=== PATIENT | female | born 1990 | race Asian ===

== ENCOUNTER 2020-11-07 17:48 | Emergency (ER) | payer OTHER ==
[2020-11-07 18:03] VITALS: BP 105/69
[2020-11-07] MEDS ORDERED: diphenhydrAMINE INJ 50 MG/ML VIAL IVP STA (18:34)
--- NOTE | 2020-11-07 18:41 | ED Physician Documentation ---
History of Present Illness - Stated complaint Stated Complaint: RASH & ACHES/POST COVID INJECTION - Chief complaint Chief Complaint: Allergic Rx - History obtained from History obtained from: Patient - History of Present Illness Timing: Today Pain level max: 0 Pain level now: 0 - Additonal information Additional information: 30-year-old female states that she received her second Covid vaccination yesterday. Today developed body aches. She states that she developed a light rash across her abdomen today as well. Has not taken anything for this. Does not itch. Nothing makes it better or worse. No difficulty speaking, swallowing, breathing. The rash is nowhere else. Review of Systems Constitutional: denies: Fever, Chills GI: denies: Vomiting, Diarrhea : denies: Now EGA Musculoskeletal: denies: Neck pain, Back pain Neurologic: denies: Headache PD PAST MEDICAL HISTORY - Past Medical History Past Medical History: No - Present Medications Home Medications: Ambulatory Orders Medication Instructions Recorded Confirmed No Known Home Medications 11/07/20 11/07/20 - Allergies Allergies/Adverse Reactions: Allergies Allergy/AdvReac Type Severity Reaction Status Date / Time No Known Drug Allergies Allergy Verified 11/07/20 17:59 - Social History Does the pt smoke?: No Smoking Status: Never smoker PD ED PE NORMAL - Vitals Vital signs reviewed: Yes - General General: Alert and oriented X 3, No acute distress, Well developed/nourished - HEENT HEENT: Moist mucous membranes - Neck Neck: Supple, no meningeal sign - Cardiac Cardiac: RRR, Strong equal pulses - Respiratory Respiratory: No respiratory distress, Clear bilaterally, Other (No stridor. No wheezing. Normal phonation.) - Abdomen Abdomen: Soft, Non tender, Non distended - Derm Derm: Warm and dry, Other (Very faint rash across the upper abdomen. Blanches easily.) - Neuro Neuro: Alert and oriented X 3 - Psych Psych: Normal mood, Normal affect Results - Vitals Vitals: Vital Signs - 24 hr 11/07/20 17:59 Temperature 36.5 C Heart Rate 95 Respiratory 16 Rate Blood Pressure 105/69 O2 Saturation 97 Oxygen O2 Source Room air PD MEDICAL DECISION MAKING - ED course Complexity details: considered differential, d/w patient ED course: Patient with what appears to be a very mild urticaria across the upper abdomen. Given Benadryl here. No indication for steroids. No airway involvement. Unclear etiology. We will have her follow-up with her doctor for further care. Patient counseled regarding signs and symptoms for which I believe and urgent re-evaluation would be necessary. Patient with good understanding of and agreement to plan and is comfortable going home at this time This document was made in part using voice recognition software. While efforts are made to proofread this document, sound alike and grammatical errors may occur. Departure - Departure Disposition: 01 Home, Self Care Clinical Impression: Rash Condition: Good Instructions: ED Urticaria Follow-Up: Luis A Perez MD [Primary Care Provider] - Comments: You can use benadryl at home. Return if you worsen. This should improve in the next 24-48 hours. Discharge Date/Time: 11/07/20 19:06
[2020-11-07] MEDS ORDERED: diphenhydrAMINE 25 MG CAPSULE PO STA (18:53)
== END 2020-11-07 19:06 | disposition home or self-care (01) ==
LOC: ED 17:48
DX: L50.9 Urticaria, unspecified (principal)
CPT/HCPCS: 99283; 99284; A9270

== ENCOUNTER 2022-04-06 14:23 | Emergency (ER) | payer OTHER ==
[2022-04-06] MEDS ORDERED: predniSONE 20 MG TABLET PO STA (19:39)
[2022-04-06 19:41] VITALS: BP 103/80
--- NOTE | 2022-04-06 19:43 | ED Physician Documentation ---
History of Present Illness - Stated complaint Stated Complaint: EYE ALLERGIC REACTION - Chief complaint Chief Complaint: Heent - Additonal information Additional information: 22 yo female presents emergency department for evaluation of intermittent swelling around both of her eyes as well as dry patchy skin preauricularly on the right side of the face. She typically uses an eczema face wash but reports that she has never had a reaction before. She has been applying Aveeno eczema but despite this is having persistent swelling of the eyes especially worse in the morning. Taking Benadryl without relief. No tongue or lip swelling. No dysphonia. No neck pain. No difficulty swallowing. Review of Systems Constitutional: denies: Fever, Chills Eyes: reports: Reviewed and negative Ears: reports: Reviewed and negative Cardiac: reports: Reviewed and negative Respiratory: reports: Reviewed and negative GI: reports: Reviewed and negative Skin: reports: Rash Musculoskeletal: reports: Reviewed and negative PD PAST MEDICAL HISTORY - Past Medical History Past Medical History: No - Past Surgical History Past Surgical History: No - Present Medications Home Medications: Ambulatory Orders Medication Instructions Recorded Confirmed predniSONE [Deltasone] 40 mg PO DAILY 5 Days #10 tablet 04/06/22 - Allergies Allergies/Adverse Reactions: Allergies Allergy/AdvReac Type Severity Reaction Status Date / Time No Known Drug Allergies Allergy Verified 04/06/22 14:35 - Social History Does the pt smoke?: No Smoking Status: Never smoker PD ED PE NORMAL - General General: Alert and oriented X 3, No acute distress, Well developed/nourished - HEENT HEENT: Atraumatic, Other (Dry scaling erythema of the upper and lower lids. The scaling patchy erythema near the right ear.) - Neck Neck: Supple, no meningeal sign, No adenopathy - Respiratory Respiratory: No respiratory distress, Clear bilaterally Results - Vitals Vitals: Vital Signs - 24 hr 04/06/22 14:32 Temperature 37 C Heart Rate 84 Respiratory 16 Rate Blood Pressure 104/66 O2 Saturation 100 Oxygen O2 Source Room air PD MEDICAL DECISION MAKING - ED course Complexity details: considered differential, d/w patient ED course: 31-year-old female presents to the emergency department for evaluation of a Periorbital rash that began about 2 weeks ago. Reports that in the mornings it is typically very swollen and red but resolves through the day however she has persistent itching dry skin and clear watery drainage. She is also having some patchy dry skin in her right ear. Clinically this suggests an eczema though Benadryl has not improved it. And making the recommendation to avoid using the eczema face wash and use hypoallergenic soaps. Made the recommendation to use Aquaphor or Vaseline on her rash. She will be started on a 5-day course of prednisone. Advise close follow-up with Dr. Perez. Clinically there is nothing to suggest anaphylaxis angioedema. No tongue or lip swelling. Normal phonation normal swallow. Emergent return precautions otherwise discussed Departure - Departure Disposition: 01 Home, Self Care Clinical Impression: Periorbital dermatitis Condition: Stable Record reviewed to determine appropriate education?: Yes Follow-Up: Luis A Perez MD [Primary Care Provider] - Prescriptions: predniSONE [Deltasone] 40 mg PO DAILY 5 Days #10 tablet Comments: The rash around both your eyes and near your right ear is suggestive of a dermatitis or early eczema. Its not clear what this is caused by but I do advise that you discontinue using your eczema face wash. Gently wash your face only with hypoallergenic soap. I do recommend that you apply Aquaphor or Vaseline to the area of the rash. You can continue taking the Benadryl. I have started you on some prednisone which will markedly help with the swelling around the eyes over the next few days. However the cause of the rash is not clear I recommend they follow closely with Dr. Perez. You may need to get referred to a family dinner service specialist if this reoccurs after the prednisone is completed.
== END 2022-04-06 19:48 | disposition home or self-care (01) ==
LOC: ED 14:23
DX: L30.8 Other specified dermatitis (principal)
CPT/HCPCS: 99282; J7512